=== PATIENT | male | born 1990 | race American Indian/Alaskan Native ===

== ENCOUNTER 2017-01-11 20:40 | Emergency (ER) | payer SELFPAY ==
[2017-01-11] MEDS ORDERED: TYLENOL ONE (22:17)
[2017-01-11 22:20] VITALS: BP 125/60
[2017-01-11] MEDS ORDERED: TYLENOL PO ONE (22:20)
[2017-01-12] MEDS ORDERED: TORADOL ONE (01:30)
[2017-01-12] MEDS ORDERED: TORADOL IM ONE (01:36)
--- NOTE | 2017-01-12 09:22 | XRay Report ---
ROUTINE CHEST, TWO VIEWS: HISTORY: chest pain. The trachea, heart, mediastinal contour, lung perry and bony thorax are unremarkable. IMPRESSION: Unremarkable chest x-ray.
--- NOTE | 2017-01-13 00:47 | ED Elopement Review ---
ED Pt Elopement review - Call Back decision Pt Call Back Decision: Pt to F/U with PMD
== END 2017-01-12 01:51 | disposition left against medical advice (07) ==
LOC: ED 20:40
DX: M54.6 Pain in thoracic spine (principal); Z53.21 Procedure and treatment not carried out due to patient leaving prior to being seen by health care provider
CPT/HCPCS: 71020; 96372; J1885